=== PATIENT | female | born 1980 | race Hispanic/Latino ===

== ENCOUNTER 2020-05-05 09:25 | Emergency (ER) | payer MEDICARE ==
--- NOTE | 2020-05-05 11:08 | Emergency Department Report ---
- General Chief Complaint: Upper Respiratory Infection Stated Complaint: DISORIENTED/CONFUSED Time Seen by Provider: 05/05/20 11:04 Source: patient Mode of arrival: Ambulatory Limitations: No Limitations - History of Present Illness Initial Comments: 40-year-old female with history of PTSD, neuropathy, presents to ED with URI symptoms, onset this morning. Patient reports she awoke with body aches, fever, "foggy head." Patient also reports sore throat and cough. Patient states sore throat resolved after drinking coffee. Patient denies any shortness of breath at this time. Patient also reports having urinary frequency and burning. She reports taking Tylenol and Motrin prior to ED arrival. MD Complaint: fever, cough, sore throat -: This morning Consistency: intermittent Improves With: NSAID Context: sick contacts Associated Symptoms: fever, myalgias, sore throat, cough Treatments Prior to Arrival: Acetaminophen, Ibuprofen - Related Data Allergies Allergy/AdvReac Type Severity Reaction Status Date / Time No Known Allergies Allergy Unverified 05/05/20 09:37 ED Review of Systems ROS: Stated complaint: DISORIENTED/CONFUSED Other details as noted in HPI Comment: All other systems reviewed and negative Constitutional: fever ENT: throat pain Respiratory: cough. denies: shortness of breath Musculoskeletal: myalgia ED Physical Exam - General Limitations: No Limitations General appearance: alert, in no apparent distress - Head Head exam: Present: atraumatic, normocephalic - Eye Eye exam: Present: normal appearance, EOMI - ENT ENT exam: Present: mucous membranes moist - Neck Neck exam: Present: normal inspection - Respiratory Respiratory exam: Present: normal lung sounds bilaterally. Absent: respiratory distress - Cardiovascular Cardiovascular Exam: Present: regular rate, normal rhythm - GI/Abdominal GI/Abdominal exam: Present: soft. Absent: distended, tenderness - Extremities Exam Extremities exam: Present: normal inspection - Neurological Exam Neurological exam: Present: alert, oriented X3 - Psychiatric Psychiatric exam: Present: normal affect, normal mood - Skin Skin exam: Present: warm, dry, intact, normal color ED Course Vital Signs 05/05/20 05/05/20 09:34 13:31 Temperature 98.0 F Pulse Rate 97 H 81 Respiratory 20 16 Rate Blood Pressure 114/81 Blood Pressure 112/70 [Left] O2 Sat by Pulse 96 98 Oximetry ED Medical Decision Making - Medical Decision Making 40-year-old female presents to ED with URI symptoms since this morning. Vital signs are normal. Patient is in no respiratory distress. O2 sats are normal. Patient reported some urinary frequency and burning, however UA is normal. She will be discharged at this time. Patient advised to obtain outpatient Covid testing and will quarantine as necessary. Return precautions given. - Differential Diagnosis Viral illness, influenza, COVID-19, UTI Critical care attestation.: If time is entered above; I have spent that time in minutes in the direct care of this critically ill patient, excluding procedure time. ED Disposition Clinical Impression: URI (upper respiratory infection) Disposition: DC- TO HOME OR SELFCARE Is pt being admited?: No Condition: Stable Instructions: COVID-19, Viral Respiratory Infection, [id number] Referrals: PRIMARY CARE, [Primary Care Provider] - 3-5 Days [facility] [Provider Group] - 3-5 Days [facility] [Outside] - 3-5 Days [facility] [Outside] - 3-5 Days Time of Disposition: 13:23
[2020-05-05 13:19] LABS: Bacteria,Urine 1+ /HPF (Negative); Bilirubin,Urine NEG (Negative); Blood,Urine NEG (Negative); Color,Urine Colorless (Yellow); Mucus,Urine FEW /HPF; Protein,Urine <15 mg/dL mg/dL (Negative); Urobilinogen,Urine < 2.0 mg/dL (<2.0)
[2020-05-05 13:21] LABS: HCG Qualitative,Urine Negative (Negative)
[2020-05-05 13:32] VITALS: BP 112/70
== END 2020-05-05 13:31 | disposition home or self-care (01) ==
LOC: ED 09:25
DX: J06.9 Acute upper respiratory infection, unspecified (principal)
CPT/HCPCS: 81001; 81025

== ENCOUNTER 2020-05-08 19:11 | Emergency (ER) | payer MEDICARE ==
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
[2020-05-08 21:32] LABS: Basophils % (Auto) 0.9 % (0.0-1.8); Eosinophils # (Auto) 0.1 K/mm3 (0.0-0.4); Eosinophils % (Auto) 1.1 % (0.0-4.3); Hematocrit 39.1 % (30.3-42.9); Hemoglobin 13.5 gm/dl (10.1-14.3); Lymphocytes # (Auto) 1.4 K/mm3 (1.2-5.4); Lymphocytes % (Auto) 24.7 % (13.4-35.0); Mean Corpuscular HGB Conc 35 % (30-34); Mean Corpuscular Volume 108 fl (79-97); Monocytes # (Auto) 0.5 K/mm3 (0.0-0.8); Monocytes % (Auto) 8.5 % (0.0-7.3); Platelet Count 347 K/mm3 (140-440); Red Blood Count 3.62 M/mm3 (3.65-5.03)
[2020-05-08 21:41] LABS: Alanine Aminotransferase 14 units/L (7-56); Albumin 4.4 g/dL (3.9-5); Blood Urea Nitrogen 11 mg/dL (7-17); Calcium 9.7 mg/dL (8.4-10.2); Hemolysis Index 6
[2020-05-08 21:42] LABS: INR 0.9 (0.87-1.13); Partial Thromboplastin Time 24.1 Sec. (24.2-36.6)
[2020-05-08 21:43] LABS: BUN/Creatinine Ratio 28
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
[2020-05-08 23:27] LABS: Bilirubin,Urine NEG (Negative); Blood,Urine LG (Negative); Color,Urine Yellow (Yellow); Mucus,Urine 1+ /HPF; Urobilinogen,Urine < 2.0 mg/dL (<2.0)
[2020-05-08 23:29] LABS: RBC,Urine > 182.0 /HPF (0.0-6.0)
[2020-05-08 23:36] LABS: HCG Qualitative,Urine Negative (Negative)
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
[2020-05-09] MEDS ORDERED: HYDROcodone/ACETAMINOPHEN 5-325 MG TAB PO ONE (01:03)
[2020-05-09 01:45] VITALS: BP 166/91
== END 2020-05-09 01:44 | disposition home or self-care (01) ==
LOC: ED 19:11
DX: S00.83XA Contusion of other part of head, initial encounter (principal); S40.011A Contusion of right shoulder, initial encounter; R91.1 Solitary pulmonary nodule; I10 Essential (primary) hypertension; F17.200 Nicotine dependence, unspecified, uncomplicated; W51.XXXA Accidental striking against or bumped into by another person, initial encounter; Y93.89 Activity, other specified; Y92.89 Other specified places as the place of occurrence of the external cause; Y99.8 Other external cause status
CPT/HCPCS: 36415; 70450; 70486; 71111; 72125; 73521; 74177; 80053; 81001; 81025; 83690; 85025; 85610; 85730; 87076; 87086; 87186; 99284; Q9967